=== PATIENT | male | born 1975 | race Caucasian/White ===

== ENCOUNTER 2023-05-03 02:54 | Outpatient (CLI) | payer OTHER, SELFPAY ==
[2023-05-03 18:07] LABS: Calculated LDL 80 mg/dL (<100); Cholesterol 151 mg/dL (<200); HDL Cholesterol 50 mg/dL (40-60); Hemoglobin A1C 5.5 % (<5.7); Triglyceride 106 mg/dL (<150)
[2023-05-04 18:04] LABS: Valproic Acid 79 ug/mL (50-100)
== END 2023-05-03 02:55 | disposition home or self-care (01) ==
LOC: LBO 02:54
PROVIDERS: PCP Nurse Practitioner Family; Visit Provider Nurse Practitioner Family
DX: Z51.81 Encounter for therapeutic drug level monitoring; Z79.899 Other long term (current) drug therapy; Z13.220 Encounter for screening for lipoid disorders; Z13.1 Encounter for screening for diabetes mellitus; G40.909 Epilepsy, unspecified, not intractable, without status epilepticus
CPT/HCPCS: 36415; 80061; 80164; 83036

== ENCOUNTER 2023-10-23 13:41 | Emergency (ER) | payer BC, SELFPAY ==
[2023-10-23] VITALS (16 sets, daily range): BP systolic 156–184; BP diastolic 84–134; PULSE 70–173; RESP 17–28; TEMP 36.3; O2SAT 90–97
--- NOTE | 2023-10-23 13:30 | RT.EKG_ITS ---
APPROVED REPORT Exam: Resting ECG Reason for Exam: ams Patient Location: E HR:155 bpm ECG Measurements Heart Rate 155 AXIS MO [id number] P [id number] QRSd 97 QRS 68 QT 302 T -76 QTc 486 Conclusion Atrial fibrillation...? atrial activity Repol abnrm suggests ischemia, diffuse leads...ST-T neg, ant/lat/inf afib rbr, rate related repol abnormalities
--- NOTE | 2023-10-23 13:45 | DI.CT_ITS ---
Exam(s) CT HEAD WO EXAM: CT HEAD WO CLINICAL HISTORY: seizures, hx seizures, fall. TECHNIQUE: Imaging Protocol: Axial computed tomography images with coronal and sagittal reformatted images were created and reviewed COMPARISON: No exams were available for comparison FINDINGS: There are no skull fractures. There is no fluid in the visualized paranasal sinuses. There is no evidence of intracranial hemorrhage, mass effect, or shift of midline structures. There are no extra-axial fluid collections. The ventricles are not enlarged or shifted and there is no blo od within the ventricular system nor within the basal cisterns. IMPRESSION: No acute intracranial findings on this noninfused CT scan of the brain. Called by myself to ER. RADIATION DOSE DELIVERED: Total DLP DATA REPOSITORY: All CT scans at this facility are submitted to the National Radiology Data Registry (NRDR) Dose Index Registry (DIR) with the [employer] (A[employer]). RADIATION OPTIMIZATION: All CT scans at this facility use at least one of these dose optimization te chniques: automated exposure control; mA and/or kV adjustment per patient size (includes targeted exa ms where dose is matched to clinical indication); or iterative reconstruction.
--- NOTE | 2023-10-23 13:45 | DI.RAD_ITS ---
Exam(s) XR CHEST 2V PA LATERAL EXAM: XR CHEST 2V PA LATERAL CLINICAL HISTORY: seizure, afib TECHNIQUE: 2D digital imaging was performed. Two views. COMPARISON: No exams were available for comparison FINDINGS: Leads overlie the chest. HEART: Normal size. Aorta: Not dilated. PULMONARY VASCULATURE: Normal. LUNGS: Clear. PLEURAL SPACE: No pleural effusion or pneumothorax. BONE:Multiple compression fractures. Soft tissues: Unremarkable. IMPRESSION: No acute abnormality. DATA REPOSITORY: RADIATION DOSE DELIVERED:
[2023-10-23] MEDS: Normal Saline 500 ML 1000 ML IV (14:00)
[2023-10-23] MEDS: dilTIAZem 25 MG/5 ML VIAL 20 MG IVP (14:00)
[2023-10-23] MEDS: Ondansetron 4 MG/2 ML VIAL IVP (14:00)
--- NOTE | 2023-10-23 14:04 | W.ED.GENAD ---
Discharge Plan Disposition Patient Disposition: Home Condition: Improving Discharge Details Clinical Impression: A-fib, Seizure Primary Care Provider: Otto Lema ED Provider: Adeel Rich Home Meds and New Rx's Prescriptions: New divalproex 250 mg tablet,delayed release (DR/EC) 250 mg PO BID Qty: 270 0RF Rx Instructions: take 4 tabs in the morning (1000mg total); take 5 tabs in evening (1250 mg total) Valtoco 10 mg/spray (0.1 mL) spray,non-aerosol 10 mg intranasal ONCE PRNQty: 2 0RF Rx Instructions: for prolonged seizure, spray 10 mg into EACH nostril divalproex 250 mg tablet,delayed release (DR/EC) 250 mg PO BID Qty: 270 0RF Rx Instructions: take 4 tabs in the morning, and take 5 tabs in the evening No Action albuterol sulfate 90 mcg/actuation HFA aerosol inhaler 2 puff inhalation Q6H PRN fluticasone propionate [Allergy Relief (fluticasone)] 50 mcg/actuation spray,suspension 1 spray intranasal DAILY Rx Instructions: administer into each nostril divalproex [Depakote] 250 mg tablet,delayed release (DR/EC) 250 mg PO BID Discharge Instructions Instructions: A-fib (Atrial Fibrillation) (ED), Recurrent Seizures in Adults (ED) Additional Instructions: Please follow-up with neurology and cardiology. Return to emergency department for any worsening symptoms HPI General Date/Time Provider Initiated Documentation: 10/23/23 13:42. HPI Narrative: 48-year-old male history of seizure disorder compliant with medications, last seizure 5 years ago had witnessed seizure that lasted for 5 to 10 minutes, postictal phase, tongue biting, patient did hit his head when he fell. Fingerstick normal in field. Noted to be in tachycardic rhythm Related Data Home Medications Medication Instructions Recorded Confirmed albuterol sulfate 90 mcg/actuation 2 puff inhalation Q6H PRN 05/01/23 05/01/23 aerosol inhaler divalproex 250 mg tablet,delayed 250 mg PO BID 05/01/23 05/01/23 release (Depakote) fluticasone propionate 50 1 spray intranasal DAILY 05/01/23 05/01/23 mcg/actuation nasal spray,suspension (Allergy Relief (fluticasone)) diazepam 10 mg/spray (0.1 mL) 10 mg (0.1 mL) intranasal ONCE PRN 10/23/23 nasal spray (Valtoco) #2 sprays divalproex 250 mg tablet,delayed 250 mg PO BID #270 tabs 10/23/23 release divalproex 250 mg tablet,delayed 250 mg PO BID #270 tabs 10/23/23 release Previous Rx's Medication Instructions Recorded diazepam 10 mg/spray (0.1 mL) 10 mg (0.1 mL) intranasal ONCE PRN 10/23/23 nasal spray (Valtoco) #2 sprays divalproex 250 mg tablet,delayed 250 mg PO BID #270 tabs 10/23/23 release divalproex 250 mg tablet,delayed 250 mg PO BID #270 tabs 10/23/23 release Allergies Allergy/AdvReac Type Severity Reaction Status Date / Time phenytoin [From Dilantin] Allergy Intermediate Skin Rash Verified 05/01/23 15:59 General Stated Complaint: Seizure HAIM: 2 Review of Systems Narrative: Review of Systems Constitutional: negative Eyes: negative ENT: negative Cardiovascular: Tachycardia Respiratory: negative Gastrointestinal: negative : negative Musculoskeletal: negative Skin: negative Neurologic: Seizure Psych: negative Exam Narrative Exam Narrative: Physical Examination General: alert, awake, cooperative, resting comfortably, no acute distress HEENT: normocephalic, atraumatic; PERRL, EOM intact, conjunctiva normal; no nasal discharge; moist mucous membranes, evidence of lateral tongue abrasion Neck: supple, trachea midline; full ROM Chest: normal to inspection Respiratory: normal respiratory effort, speaking in full sentences, clear to auscultation, no wheezing, rales or rhonchi Cardiac: Tachycardia irregularly irregular GI: abdomen soft, non-tender, non-distended; no palpable mass or hepatosplenomegaly Skin: no lesions, rashes or trauma appreciated Neuro: AAOx3, normal speech, moving all extremities; cranial 2 through 12 intact out of 5 strength upper and lower extremities bilaterally no truncal ataxia Extremities: No peripheral edema Psych: Appropriate mood and affect Course Vital Signs Vital signs: Vital Signs Temperature 36.3 C L 10/23/23 13:42 Pulse 162 H 10/23/23 13:42 Respiratory Rate 20 10/23/23 13:42 Blood Pressure 173/119 H 10/23/23 13:42 Pulse Oximetry 96 10/23/23 13:42 Temperature 36.3 C L 10/23/23 13:42 Pulse 162 H 10/23/23 13:42 Respiratory Rate 20 10/23/23 13:42 Respiratory Effort Normal 10/23/23 13:49 Respiratory Depth Normal 10/23/23 13:49 Respiratory Pattern Normal 10/23/23 13:49 Blood Pressure 173/119 H 10/23/23 13:42 Pulse Oximetry 96 10/23/23 13:42 Oxygen Delivery Method Room Air 10/23/23 13:42 Oxygen Flow Rate 0 10/23/23 13:42 Medical Decision Making 48-year-old male history of seizure disorder presents after witnessed seizure the last approximately 5 to 10 minutes, postictal phase, tongue biting, patient did hit head when he fell, patient currently alert oriented interactive moving all extremities nonfocal, fingerstick normal in the field, no to be hypertensive tachycardic A-fib RVR on EKG, no external signs of trauma, patient does have abrasion to lateral tongue, no chest pain or shortness of breath no history of coronary disease or thromboembolic disease per patient; will assess for electrolyte derangement, infection, intracranial process or dehydration lower suspicion for CVA or aortic pathology at this time lower suspicion for PE. Will load with Keppra, fluid bolus, diltiazem for rate control. 16: 47 patient resting really no acute distress CT unremarkable, labs largely unremarkable. Persistent A-fib RVR on monitor however patient got up to urinate and spontaneously converted. Obtaining repeat EKG. Patient is chest pain-free no shortness of breath. Will refill his antiepileptic medications. Patient was loaded with Keppra here in department. Patient will follow-up closely with Dr. Barnes of neurology. Home care instructions and strict return precautions given Quality:SDOH Health Related Social Needs: No Data to Display PFSH All Active Problems (Updated 10/23/23 @ 16:52 by Adeel Rich MD) Seizure (Acute) A-fib (Chronic) Former smoker (Acute) Quit in 2017. 2 pack/day Disc degeneration, lumbosacral (Acute) COPD (chronic obstructive pulmonary disease) (Chronic) Epilepsy (Acute) Controlled very well. Has not had one for 5 years as of 2022. Surgical History (Updated 05/01/23 @ 12:19 by Shahida Gao) H/O hernia repair History of appendectomy History of tonsillectomy and adenoidectomy Family History (Updated 05/10/23 @ 11:11 by Kilo Shah) Mother Alcohol use disorder Hyperlipidemia Depression Hypertension Dementia Father Alcohol use disorder Hyperlipidemia Patient's father is Sister Alcohol use disorder Depression Maternal Grandmother Alcohol use disorder Hyperlipidemia Dementia Paternal Grandmother Colon cancer Depression Dementia Social History (Updated 05/01/23 @ 12:21 by Shahida Gao) Smoking/Tobacco Use Status: Former Tobacco Use tobacco type: cigarettes Quit Date: 08/07/15 Second Hand Exposure: Yes Smoking risk assessment performed?: Yes Alcohol Intake: current Alcohol Intake frequency: a few times a week Alcohol type: beer and hard liquor Drug use: Daily Substance use type: marijuana Caregiver/Support person: No Household members: significant other Housing: house Communication Needs: Corrective Lenses Do you need help understanding health information?: Rarely Pets and animals: Yes Sexually active: Yes Do you think of yourself as: straight/heterosexual Current gender identity: male What is your relationship status?: living with partner How often do you talk on the phone with friends or family?: three or more times per week How often do you get together with friends or relatives?: twice per week How often do you attend jew or denominational services?: decline to answer Do you belong to any clubs or organized social groups?: yes Panel score (0-1 are the most socially isolated patients): 3 What type of physical activity do you participate in: walking Duration: 30-45 minutes/day Frequency: daily Gogo/Yazdanism: No preference Special gogo needs: No Seatbelt use: always Helmet use: Yes Drive 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 Drive intox or w/intox sanitation truck driver: rarely Do you feel safe at home: Yes Do you feel safe in your relationship?: Yes PAWSS Have you Been Recently Intoxicated or Drunk Within the Last 30 days?: No Have you Ever Experienced Previous Episodes of Alcohol Withdrawal?: No Have you ever Experienced Withdrawal Seizures?: No Have you ever Experienced Delirium Tremens(DT)s?: No Have you ever undergone Alcohol Rehabilitation Treatment (i.e, inpt ot outpatient treatment programs)?: No Have you ever Experienced Blackouts?: No Have you ever Combined Alcohol with other Downers within the last 90 days?: No Have you ever Combined Alcohol with any other Substance of Abuse during the last 90 days?: No Positive Blood Alcohol level on Presentation? [PCS.BAL]: No Evidence of Increased Autonomic Activity (i.e. HR>120, tremor, sweating, agitation, nausea)?: No Result: 0
[2023-10-23 14:15] LABS: Abs Immature Grans 0.05 10^3/uL (0.0-0.06); Absolute Basophil Count 0.04 10^3/uL (0.0-0.2); Absolute Eosinophil Count 0.21 10^3/uL (0.0-0.7); Absolute Monocyte Count 0.62 10^3/uL (0.1-0.8); Absolute Neutrophil Count 3.75 10^3/uL (1.2-6.7); Basophils % 0.5; Eosinophils % 2.7; HCT 46.8 % (40.0-50.0); HGB 15.8 g/dL (13.5-17.5); Immature Grans % 0.6; Lymphocytes % 40.7; MCH 30.9 pg (27.0-33.0); MCHC 33.8 % (32.0-36.0); MCV 91 fL (80-95); MPV 10.7 fL (8.0-11.0); Monocytes % 7.9; Neutrophils % 47.6; Platelet Count 191 10^3/uL (130-400); RBC 5.12 10^6/uL (4.36-5.78); RDW 13.2 % (11.8-14.1); RDW-SD 44.5 fL; WBC 7.87 10^3/uL (4.4-10.8)
[2023-10-23 14:28] LABS: PTT Activated 22.8 sec (23.6-32.8); Prothrombin Time 10.4 sec (9.1-11.1)
[2023-10-23 14:43] LABS: ALT 32 U/L (16-63); AST 28 U/L (15-37); Albumin 3.8 g/dL (3.4-5.0); Alkaline Phosphatase 103 U/L (46-116); Anion Gap 17.1 mmol/L (3-11); BUN 14 mg/dL (7-18); Bilirubin, Total 0.4 mg/dL (0.2-1.0); CO2 20.9 mmol/L (21.0-32.0); CREATININE 1.2 mg/dL (0.70-1.30); Calcium 8.8 mg/dL (8.5-10.1); Chloride 103 mmol/L (98-107); ETHANOL BLOOD < 3.0 mg/dL (<10); Estimated GFR 74.13 (mL/min/1.73m2); Glucose 152 mg/dL (74-106); Magnesium 2.1 mg/dL (1.8-2.4); Potassium 3.5 mmol/L (3.5-5.1); Sodium 141 mmol/L (136-145); TSH (W/Ref FT4) 3.06 uIU/mL (0.36-3.74); Total Protein 8.1 g/dL (6.4-8.2)
[2023-10-23] MEDS: levETIRAcetam 2,000 MG in Normal Saline 100 ML 400 MG IVPB (14:44)
[2023-10-23 15:13] LABS: Bilirubin Negative (Negative); Blood Small (Negative); Clarity Clear (Clear); Glucose Negative (Negative); Ketones Negative (Negative); Leukocyte Esterase Negative (Negative); Nitrite Negative (Negative); Specific Gravity 1.025 (1.005-1.025); Urobilinogen 0.2 mg/dL (Up to 0.2)
[2023-10-23 15:23] LABS: Bacteria Negative HPF (Negative); C & S Indicated? No; Casts 0-2 Hyaline LPF (Negative); Crystals Negative HPF (Negative); Epithelial Cells Negative HPF (Negative); Mucus Negative (Negative); WBC Negative HPF (0-5)
[2023-10-23 15:28] LABS: *AMPHETAMINES SCREEN URINE Negative (Negative); *BARBITURATES SCREEN URINE Negative (Negative); *BENZODIAZEPINES SCREEN URINE Negative (Negative); Cannabinoids THC Positive (Negative); Cocaine Screen,Urine Negative (Negative); METHADONE URINE SCREEN Negative (Negative); OPIATES URINE SCREEN Negative (Negative)
[2023-10-23 15:29] LABS: Tricyclic Antidepressants Negative (Negative)
--- NOTE | 2023-10-23 16:45 | RT.EKG_ITS ---
APPROVED REPORT Exam: Resting ECG Reason for Exam: s/p converstion to NSR Patient Location: E HR:66 bpm ECG Measurements Heart Rate 66 AXIS [place] 177 P 38 QRSd 99 QRS 69 QT 370 T 20 QTc 388 Conclusion Sinus rhythm...normal P axis, V-rate 60- 99 sinus rhtyhm, normal axis, normal intervals, nonischemic
--- NOTE | 2023-10-23 17:28 | NUR.NOTE ---
Referral faxed to Cardiology for follow up to the ER visit sometime this week.
--- NOTE | 2023-10-23 17:30 | NUR.NOTE ---
Referral Faxed to Neurology for a follow up to the ER visit this week.
--- NOTE | 2023-10-26 07:22 | NUR.NOTE ---
Accessed chart to reconcile EKG orders to EKGs performed. Nursing Note:
== END 2023-10-23 17:21 | disposition home or self-care (01) ==
PROVIDERS: Emergency Provider Emergency Medicine; PCP Nurse Practitioner Family
DX: G40.909 Epilepsy, unspecified, not intractable, without status epilepticus (principal); I48.91 Unspecified atrial fibrillation; Z87.891 Personal history of nicotine dependence
CPT/HCPCS: 36415; 80053; 80307; 93005; 96374; 96375; 99285; 70450; 71046; 80320; 81003; 81015; 83735; 84443; 85025; 85610; 85730; 93010; 99284; J1953; J2405

== ENCOUNTER → 2023-11-08 01:21 | Outpatient (CLI) | payer BC, SELFPAY ==
--- NOTE | 2023-11-08 14:00 | DI.US_ITS ---
APPROVED REPORT EXAM: Comprehensive 2D, Doppler, and color-flow Echocardiogram Patient Location: [facility]Patient [facility] Outreach Director: Joan Lewis RDCS (AE) Indications: A Fib Other Information Study Quality: Fair. Technically limited study due to body habitus. Conclusion Normal left ventricular wall thickness and chamber size. EF is 60%. Wall motion is normal Normal right ventricualr size and function Both atria are normal in size There is no structural or hemodynamically significant valvular disease Patient was in sinus rhtym throughout study Wall motion Left Ventricle The left ventricle is normal size. The overall left ventricular systolic function appears normal. The re is normal left ventricular wall thickness. There is normal LV segmental wall motion. There is no v entricular septal defect visualized. LVEF is 60%. Right Ventricle Right ventricle is grossly normal in size. Right ventricular systolic function is grossly normal. Atria The left atrium size is normal. The right atrium size is normal. The interatrial septum is intact wit h no evidence for an atrial septal defect. Aortic Valve The aortic valve is normal in structure. Aortic valve is trileaflet. There is no aortic valvular sten osis. No aortic regurgitation is present. Mitral Valve The mitral valve is normal in structure. No evidence of mitral valve stenosis. Trace mitral regurgita tion. Tricuspid Valve The tricuspid valve is normal in structure. There is no tricuspid valve stenosis. Trace tricuspid reg urgitation. Unable to assess PA pressure. Pulmonic Valve Pulmonic valve is not well visualized. There is no pulmonic valvular stenosis. There is no pulmonic v alvular regurgitation. Great Vessels The aortic root is normal in size. The ascending aorta is normal in size. Aortic arch is normal in ca liber. IVC is normal in size and collapses >50% with inspiration. Pericardium There is no pericardial effusion. 2D Dimensions IVSD d PLAX 0.97 cm M: 0.6-1.2 Ao Root d 3.19 cm M: 3.1 - 3.7 LVPW d PLAX 0.99 cm M: 0.6 - 1.2 Ao Asc Diam d 3.44 cm M: 2.6 - 3.4 LVID d PLAX 5.19 cm M: 4.2 - 5.8 LVDs 3.48 cm M: 2.5 - 4.0 LV EF Teichholz 61.1 % FS 32.98 % LV EDV (Teich) 128.9 mL LV ESV (Teich) 50.1 mL M-Mode TAPSE 3.94 cm (M/F) >1.7 Auto EF LV EDV A4C 163.2 mL LV EDV A2C 183.9 mL LV EDV BP 171.5 mL LV ESV A4C 62.9 mL LV ESV A2C 73.2 mL LV ESV BP 67.3 mL LVEF(%) A4C 61.4 % LVEF(%) A2C 60.2 % LVEF(%) BP 60.7 % LV SV A4C 100.3 ml LV SV A2C 110.8 ml LV SV BP 104.2 ml LV CO A4C 4.4 L/min LV CO A2C 5.8 L/min LV CO BP 5.1 L/min HR A4C 44.23 BPM HR A2C 52.03 BPM LV EDV Index (BP) LA Volume LA Length A4C 6.6 cm LA Length A2C 5.2 cm LA Area A4C s 28.87 cm2 LA Area A2C s 17.97 cm2 LA Vol A4C A-L 106.65 mL LA Vol A2C A-L 52.53 mL LA Vol Biplane A-L 84.4 mL LA Vol/BSA A4C A-L LA Vol/BSA A2C A-L LA Vol/BSA BP A-L 32.8 mL/m2 LA Vol A4C MOD 97.7 mL LA Vol A2C MOD 50.8 mL LA Vol BP MOD 78.7 mL RA Volume RA Area A4C 25.6 cm2 RA ESV A4C (A-L) 95.8mL RA Vol/BSA A4C A-L RA Length A4C 5.8 cm RA ESV A4C (MOD) 89.8mL LV Diastology MV E' medial 0.085 (>0.07 m/s) MV E Vmax 0.74 (0.4-1.3 m/s) MV E/E' MED 8.74 (<14) MV A Vmax 0.65 (0.4-1.3 m/s) MV E' lateral 0.149 (>0.1 m/s) E/A Ratio 1.1 MV E/E' LAT 4.96 (<14) MV E' Average 0.117 m/s MV E/E'(average) 6.33 Aortic Valve AoV Vmax 1.72 m/s LVOT Vmax 1.32 m/s AoV Peak Grad 11.8 mmHg LVOT Peak Grad 6.9 mmHg AoV Area (Vmax) 2.41 cm2 LVOT VTI 0.248 m AoV VTI 0.339 m LVOT Mean Grad 4.1 mmHg AoV Mean [place]. 1.16 m/s LVOT SV 77.95 mL AoV Mean Grad 6.2 mmHg LVOT Diam s 2.00 cm AoV Area (VTI) 2.30 cm2 Velocity Ratio 0.77 Mitral Valve MV DT 212 (160-240 msec) MV Vmax TIPS 0.68 m/s MV Mean Grad 0.7 (<2mmHg) MV VTI 0.316 m Pulmonary Valve PV Vmax 1.26 (0.5-1.5 m/s) RVOT Vmax 0.93 m/s PV Peak Grad 6.4 mmHg RVOT Peak Gr. 3.5 mmHg PV Mean [place] 0.83 m/s RVOT VTI 0.186 m PV Mean Grad 3.2 mmHg RVOT Mean Gr. 1.5 mmHg Tricuspid Valve TV S' 0.21 m/s
== END ==
PROVIDERS: PCP Nurse Practitioner Family; Visit Provider Nurse Practitioner Family
DX: I48.91 Unspecified atrial fibrillation (principal)
CPT/HCPCS: 93306

== ENCOUNTER 2024-02-05 04:42 | Outpatient (CLI) | payer BC, SELFPAY ==
[2024-02-05 15:29] LABS: HCT 39.4 % (40.0-50.0); HGB 13.9 g/dL (13.5-17.5); MCH 31.1 pg (27.0-33.0); MCHC 35.3 % (32.0-36.0); MCV 88 fL (80-95); Platelet Count 229 10^3/uL (130-400); RBC 4.47 10^6/uL (4.36-5.78); RDW 13.5 % (11.8-14.1); RDW-SD 43.6 fL; WBC 5.12 10^3/uL (4.4-10.8)
[2024-02-05 17:12] LABS: ALT 55 U/L (16-63); AST 26 U/L (15-37); Albumin 3.7 g/dL (3.4-5.0); Alkaline Phosphatase 98 U/L (46-116); Anion Gap 7.4 mmol/L (3-11); BUN 18 mg/dL (7-18); CO2 27.6 mmol/L (21.0-32.0); CREATININE 1.2 mg/dL (0.70-1.30); Calcium 8.8 mg/dL (8.5-10.1); Chloride 109 mmol/L (98-107); Estimated GFR 74.13 (mL/min/1.73m2); Glucose 122 mg/dL (74-106); Potassium 3.5 mmol/L (3.5-5.1); Sodium 144 mmol/L (136-145); Total Protein 7.2 g/dL (6.4-8.2)
[2024-02-08 00:18] LABS: Topiramate 11.8 mcg/mL
== END 2024-02-05 04:43 | disposition home or self-care (01) ==
LOC: LBO 04:43
PROVIDERS: Psychiatry & Neurology Neurology; PCP Nurse Practitioner Family; Visit Provider Nurse Practitioner Family
DX: G40.909 Epilepsy, unspecified, not intractable, without status epilepticus (principal)
CPT/HCPCS: 36415; 80053; 85027; 80201

== ENCOUNTER 2024-07-30 03:36 | Outpatient (CLI) | payer BC, SELFPAY ==
[2024-07-30 15:15] LABS: Hemoglobin A1C 5.2 % (<5.7)
[2024-07-30 15:45] LABS: Calculated LDL 84 mg/dL (<100); Cholesterol 143 mg/dL (<200); HDL Cholesterol 44 mg/dL (40-60); Triglyceride 76 mg/dL (<150)
[2024-07-31 07:32] LABS: PSA, Screening 0.4 ng/mL (<=3.5)
== END 2024-07-30 03:37 | disposition home or self-care (01) ==
LOC: LBO 03:36
PROVIDERS: PCP Nurse Practitioner Family; Visit Provider Nurse Practitioner Family
DX: Z12.5 Encounter for screening for malignant neoplasm of prostate (principal); Z13.220 Encounter for screening for lipoid disorders; Z13.1 Encounter for screening for diabetes mellitus
CPT/HCPCS: 36415; 80061; 84153; 83036